=== PATIENT | male | born 1945 | race Caucasian/White ===

== ENCOUNTER 2019-05-09 10:26 | Day surgery (SDC) | payer OTHER ==
[~2019-05-09] VITALS: Ht 182.9 cm; Wt 90.9 kg
[2019-05-09] VITALS (7 sets, daily range): BP systolic 105–120; BP diastolic 65–88; PULSE 45–72; TEMP 97.3–97.8
[2019-05-09 10:56] LABS: POTASSIUM 4.7 mmol/L (3.4-5.0)
[2019-05-09 11:03] LABS: INR 1.1 (0.8-3.0); PROTHROMBIN TIME 12.7 SECONDS (9.7-12.8)
[2019-05-09 11:32] LABS: THYROID STIMULATING HORMONE 0.59 uIU/mL (0.465-4.680)
[2019-05-09] MEDS ORDERED: PLAVIX 75MG TAB75 MG PO (11:41)
[2019-05-09] MEDS ORDERED: LIPITOR 40MG TA40 MG PO (11:41)
[2019-05-09] MEDS ORDERED: ZOVIRAX400 MG PO (11:41)
[2019-05-09] MEDS ORDERED: PEPCID 20MG TAB20 MG PO (11:42)
[2019-05-09] MEDS ORDERED: PRADAXA 150MG150 MG PO (11:42)
[2019-05-09] MEDS ORDERED: LOPRESSOR 225 MG/TAB PO ×2 (11:43→12:48)
[2019-05-09] MEDS ORDERED: ANTIVERT 25MG25 MG PO (11:43)
[2019-05-09] MEDS ORDERED: GLUCOSAMIN 500 PO (11:44)
[2019-05-09] MEDS ORDERED: MASON NATURAL2000 IU PO (11:45)
[2019-05-09] MEDS ORDERED: MAGNESIUM250 M1 PO (11:45)
[2019-05-09] MEDS ORDERED: REFRESH TEARS 330 ML OU (11:46)
--- NOTE | 2019-05-09 13:05 | NUR ---
LEVY/CV complete, report received from Samantha Zuluaga RN. Pt resting well.
--- NOTE | 2019-05-09 14:20 | NUR ---
Pt has ambulated and astrid po intake s n/v. PIV removed with catheter intact.
--- NOTE | 2019-05-09 14:35 | NUR ---
Pt discharged per w/c by nurse with .
== END 2019-05-09 14:54 | disposition home or self-care (01) ==
LOC: COL.CAR 10:26
PROVIDERS: Internal Medicine Cardiovascular Disease
DX: I48.91 Unspecified atrial fibrillation (principal); I48.92 Unspecified atrial flutter; I63.40 Cerebral infarction due to embolism of unspecified cerebral artery; E78.5 Hyperlipidemia, unspecified; I34.0 Nonrheumatic mitral (valve) insufficiency; K21.9 Gastro-esophageal reflux disease without esophagitis; I10 Essential (primary) hypertension; G25.81 Restless legs syndrome; Z79.82 Long term (current) use of aspirin; Z79.02 Long term (current) use of antithrombotics/antiplatelets; Z83.3 Family history of diabetes mellitus; Z82.49 Family history of ischemic heart disease and other diseases of the circulatory system; Z80.9 Family history of malignant neoplasm, unspecified
CPT/HCPCS: J2704; J7030